=== PATIENT | female | born 1975 | race African-American/Black ===

== ENCOUNTER 2019-09-13 17:11 | Inpatient (IN) | payer MEDICARE, OTHER ==
[~2019-09-13] VITALS: Ht 170.2 cm; Wt 86.6 kg
[~2019-09-13 17:11] MED LIST: ASPIRIN-LOW81 MG ORAL; BENADRYL50 MG PO; CARTIA XT240 MG ORAL; CARVEDILOL25 MG ORAL; CATAPRES0.3 MG ORAL; FULL SPECTRUM0.8 MG PO; LISINOPRIL40 MG ORAL; LORATADINE10 MG PO; RENVELA0.8 GM ORAL
--- NOTE | 2019-09-13 17:20 | NUR ---
ED Nurse Note: Patient walked in to ER from home due to Rt arm numbness x4 days. pt has shunt on Lt upper arm. pt gets dialysis every T, Th, S. last dialysis was yesterday. pt aao x4 and ambulatory. skin clean and intact. calm and cooperative. high bp reported to ERMD upon arrival. pt is in gown and on gutter mouth cutter.
--- NOTE | 2019-09-13 17:30 | NUR ---
ED Nurse Note: pt taken to CT scan in stable condition.
--- NOTE | 2019-09-13 17:34 | Emergency Room Report ---
History of Present Illness General Chief Complaint: General Complaint Source: Patient Present Illness HPI Patient presents with 4 days of intermittent right hand weakness and numbness. Leaning about numbness of her palm. She thought that she might of slept on it wrong initially. She was not doing anything unusual. She had dialysis the day before this started. There is been no problem with dialysis. Patient denies headache. Patient denies fevers and chills. Patient has hypertension but diabetes has been controlled with worsening renal function. Patient's last dialysis was . Allergies: Coded Allergies: No Known Allergies (Verified Allergy, Mild, 09/21/10) Patient History Past Medical History: see triage record Past Surgical History: other - Fistula left upper arm Social History: Denies: smoking, alcohol use, drug use Social History Narrative From home Last Menstrual Period: na Now: No Reviewed Nursing Documentation: PMH: Agreed; PSxH: Agreed Nursing Documentation-PMH Hx Hypertension: Yes Hx Diabetes: Yes Hx Cancer: No Hx Gastrointestinal Problems: No Hx Dialysis: Yes - ESRD with HD //- fistula to left upper arm Hx Neurological Problems: No Physical Exam Vital Signs Date Time Temp Pulse Resp B/P (MAP) Pulse Ox O2 Delivery O2 Flow Rate FiO2 09/13/19 17:16 98.2 78 15 174/77 (109) 97 Room Air Sp02 EP Interpretation: reviewed, normal General Appearance: well appearing, no apparent distress, GCS 15 Head: normocephalic Eyes: bilateral eye normal inspection, bilateral eye PERRL, bilateral eye EOMI ENT: normal pharynx, moist mucus membranes Neck: supple Respiratory: lungs clear, normal breath sounds Cardiovascular #1: regular rate, rhythm - Trace, JVD, other - Subjective difference in capillary fill between left and right hand., edema Cardiovascular #2: 2+ radial (R), 2+ radial (L) - Fistula with thrill Gastrointestinal: normal inspection, normal bowel sounds, non tender, no mass, non-distended Genitourinary: no CVA tenderness Musculoskeletal: back normal, normal range of motion Neurologic: alert, motor strength/tone normal, manager apple III-XII nml as tested, oriented x3, cerebellar normal, speech normal, other - Subjective decreased sensation right palm Skin: no rash, warm/dry Medical Decision Making Diagnostic Impression: Primary Impression: Numbness of right hand Additional Impressions: End stage renal disease on dialysis Cardiomegaly ER Course Patient presents with intermittent right hand weakness and numbness for 4 days with a history of end-stage renal disease on dialysis. Differential includes CVA, TIA, circulatory dysfunction, carpal tunnel amongst others. Evaluation with EKG, chest x-ray, CT of the head and labs. Currently she has subjective numbness of the hand without any other neurologic findings. In addition this is 4 days of symptoms and therefore she is outside of the window for TPA. EKG without injury. No electrical alternans CXR cardiomegally. Labs with chronic renal failure. CT no bleed. Aspirin given for possible TIA. Still numbness. Patient states she is never been told that she has enlarged heart on x-ray. Consider echocardiogram to rule out pericardial effusion. Admit obs telemetry. Consider neuro w/u and consult along with echocardiogram and possible MRI. Laboratory Tests Test 09/13/19 17:35 White Blood Count 6.1 K/UL (4.8-10.8) Red Blood Count 4.41 M/UL (4.20-5.40) Hemoglobin 13.0 G/DL (12.0-16.0) Hematocrit 42.4 % (37.0-47.0) Mean Corpuscular Volume 96 FL (80-99) Mean Corpuscular Hemoglobin 29.6 PG (27.0-31.0) Mean Corpuscular Hemoglobin Concent 30.7 G/DL (32.0-36.0) L Red Cell Distribution Width 16.1 % (11.6-14.8) H Platelet Count 103 K/UL (150-450) L Mean Platelet Volume 10.8 FL (6.5-10.1) H Neutrophils (%) (Auto) 61.3 % (45.0-75.0) Lymphocytes (%) (Auto) 18.2 % (20.0-45.0) L Monocytes (%) (Auto) 6.3 % (1.0-10.0) Eosinophils (%) (Auto) 12.5 % (0.0-3.0) H Basophils (%) (Auto) 1.7 % (0.0-2.0) Prothrombin Time 11.5 SEC (9.30-11.50) Prothrombin Time INR 1.1 (0.9-1.1) Activated Partial Thromboplast Time 29 SEC (23-33) Sodium Level 144 MMOL/L (136-145) Potassium Level 4.3 MMOL/L (3.5-5.1) Chloride Level 102 MMOL/L (98-107) Carbon Dioxide Level 31 MMOL/L (21-32) Anion Gap 11 mmol/L (5-15) Blood Urea Nitrogen 41 mg/dL (7-18) H Creatinine 7.3 MG/DL (0.55-1.30) H Estimate Glomerular Filtration Rate 7.4 mL/min (>60) Glucose Level 137 MG/DL (74-106) H Calcium Level 9.6 MG/DL (8.5-10.1) Total Bilirubin 0.5 MG/DL (0.2-1.0) Aspartate Amino Transferase (AST) 28 U/L (15-37) Alanine Aminotransferase (ALT) 43 U/L (12-78) Alkaline Phosphatase 117 U/L (46-116) H Total Creatine Kinase 130 U/L (26-308) Troponin I 0.049 ng/mL (0.000-0.056) Pro-B-Type Natriuretic Peptide 86997 pg/mL (0-125) H Total Protein 8.4 G/DL (6.4-8.2) H Albumin 4.1 G/DL (3.4-5.0) Globulin 4.3 g/dL Albumin/Globulin Ratio 1.0 (1.0-2.7) EKG Diagnostic Results Rate: normal Rhythm: NSR ST Segments: no acute changes - Right bundle branch block right ventricular hypertrophy left posterior fascicular block Rhythm Strip Diag. Results EP Interpretation: yes Rhythm: NSR, no PVC's, no ectopy Chest X-Ray Diagnostic Results Chest X-Ray Diagnostic Results : Chest X-Ray Ordered: Yes # of Views/Limited/Complete: 1 View Indication: Other EP Interpretation: Yes Interpretation: no consolidation, no effusion, no pneumothorax, other - Cardiomegaly Impression: Other Electronically Signed by: Electronically signed by Colin Lopez MD CT/MRI/US Diagnostic Results CT/MRI/US Diagnostic Results : Imaging Test Ordered: head Impression no bleed or mass effect Last Vital Signs Date Time Temp Pulse Resp B/P (MAP) Pulse Ox O2 Delivery O2 Flow Rate FiO2 09/14/19 00:00 76 3/7/20 00:00 97.6 17 158/68 (98) 98 09/13/19 20:57 Room Air Status: improved Disposition: PLACE IN OBSERVATION Condition: Serious Colin Lopez MD Sep 13, 2019 17:34
[2019-09-13 17:40] VITALS: BP 185/72
--- NOTE | 2019-09-13 17:45 | NUR ---
ED Nurse Note: Patient came back from CT scan in stable condition.
[2019-09-13 17:46] LABS: BASOPHILS % (AUTO) 1.7 % (0.0-2.0); EOSINOPHILS % (AUTO) 12.5 % (0.0-3.0); HEMATOCRIT 42.4 % (37.0-47.0); LYMPHOCYTES % (AUTO) 18.2 % (20.0-45.0); MEAN CORPUSCULAR VOLUME 96 FL (80-99); MONOCYTES % (AUTO) 6.3 % (1.0-10.0); NEUTROPHILS % (AUTO) 61.3 % (45.0-75.0); PLATELET COUNT 103 K/UL (150-450); RED BLOOD COUNT 4.41 M/UL (4.20-5.40); RED CELL DISTRIBUTION WIDTH 16.1 % (11.6-14.8); WHITE BLOOD COUNT 6.1 K/UL (4.8-10.8)
--- NOTE | 2019-09-13 17:48 | Diagnostic Imaging Report ---
EXAM: CT Head Without Intravenous Contrast CLINICAL HISTORY: CVA TECHNIQUE: Axial computed tomography images of the head/brain without intravenous contrast. CTDI is 53 mGy and DLP is 1018 mGy-cm. One or more of the following dose reduction techniques were used: automated exposure control, adjustment of the mA and/or kV according to patient size, use of iterative reconstruction technique. COMPARISON: No relevant prior studies available. FINDINGS: Brain: Unremarkable. No hemorrhage. No significant white matter disease. No edema. Ventricles: Unremarkable. No ventriculomegaly. Bones/joints: Unremarkable. No acute fracture. Soft tissues: Unremarkable. Sinuses: Unremarkable as visualized. No acute sinusitis. Mastoid air cells: Unremarkable as visualized. No mastoid effusion. IMPRESSION: 1. No acute intracranial abnormality. 2. If there is further concern, consider MRI.
--- NOTE | 2019-09-13 17:50 | Diagnostic Imaging Report ---
EXAM: XR Chest, 1 View CLINICAL HISTORY: CVA TECHNIQUE: Frontal view of the chest. COMPARISON: No relevant prior studies available. FINDINGS: Lungs: Unremarkable. No consolidation. Pleural space: Unremarkable. No pneumothorax. Heart: Massive cardiac mediastinal silhouette enlargement, which could represent pericardial effusion, chamber enlargement, or a combination of these processes. Mediastinum: Unremarkable. Bones/joints: Unremarkable. IMPRESSION: 1. Massive cardiac mediastinal silhouette enlargement, which could represent pericardial effusion, chamber enlargement, or a combination of these processes. 2. Otherwise no acute cardiopulmonary disease. 3. Recommend echocardiogram to further characterize cardiomediastinal silhouette findings.
[2019-09-13 17:58] LABS: ANION GAP 11 mmol/L (5-15); BLOOD UREA NITROGEN 41 mg/dL (7-18); CALCIUM 9.6 MG/DL (8.5-10.1); CARBON DIOXIDE 31 MMOL/L (21-32); CHLORIDE 102 MMOL/L (98-107); CREATININE 7.3 MG/DL (0.55-1.30); POTASSIUM 4.3 MMOL/L (3.5-5.1); SODIUM 144 MMOL/L (136-145)
[2019-09-13 18:00] LABS: INR 1.1 (0.9-1.1)
[2019-09-13] MEDS ORDERED: VITAMIN B-1100 MG ORAL (18:11)
[2019-09-13] MEDS ORDERED: CARVEDILOL25 MG ORAL (18:11)
[2019-09-13] MEDS ORDERED: ASPIRIN EC81 MG ORAL (18:11)
[2019-09-13] MEDS ORDERED: MINOXIDIL10 MG PO (18:11)
[2019-09-13] MEDS ORDERED: HYDRALAZINE HCL25 M1 ORAL (18:11)
[2019-09-13] MEDS ORDERED: RENVELA0.8 GM ORAL (18:11)
[2019-09-13 18:12] LABS: ALANINE AMINOTRANSFERASE 43 U/L (12-78); ALBUMIN 4.1 G/DL (3.4-5.0); ALKALINE PHOSPHATASE 117 U/L (46-116); ASPARTATE AMINO TRANSFERASE 28 U/L (15-37); BILIRUBIN,TOTAL 0.5 MG/DL (0.2-1.0); CREATINE KINASE 130 U/L (26-308)
[2019-09-13 19:10] VITALS: BP 180/73
--- NOTE | 2019-09-13 19:10 | NUR ---
ED Nurse Note: Report received from Sylvain Andre RN. Pt in stable condition, VSS no s/s of distress noted. Pt resting in bed.
[2019-09-13 20:08] VITALS: BP 155/65
--- NOTE | 2019-09-13 20:10 | NUR ---
ER DISCHARGE NOTE: Patient is cleared to be discharged TO TELEMETRY UNIT per ERMD, pt is aox4, on room air, with stable vital signs. pt was able to verbalize understanding. pt is able to ambulate with steady gait. pt took all belongings. Pt transferred with environmental tech and 1 RN on bus driver/monitor. Report given to ALEXUS Everett on telemetry unit.
--- NOTE | 2019-09-13 20:12 | NUR ---
ED Nurse Note: report given to ALEXUS Everett on telemetry unit
--- NOTE | 2019-09-13 20:20 | NUR ---
NURSE NOTES: Received pt via gurney from ED. Pt transferred to 221-2 without any incident. Pt is A/Ox4. [place] pt to room and unit. nurse monitoring is in placed; pt is NSR. IV site intact, asymptomatic, and patent. Bed is in the lowest position and locked. Call light and bedside table is within reach. Belongings list check and signed. No signs/symptoms of acute distress noted at this time. Will contact Dr. Moreno for admission orders.
[2019-09-13 20:30] VITALS: BP 160/74
--- NOTE | 2019-09-13 20:40 | NUR ---
NURSE NOTES: Contacted Dr. Moreno for admission orders. Awaiting call back.
--- NOTE | 2019-09-13 21:45 | NUR ---
NURSE NOTES: Received admission orders from Dr. Moreno. Will note and carry out.
[2019-09-13] MEDS ORDERED: Renvela 800mg Pkt ORAL PRN (22:15)
[2019-09-13] MEDS: HydrALAZINE 25mg tab ORAL SCH (22:35)
[2019-09-13] MEDS: Minoxidil 10mg tab ORAL SCH (22:35)
[2019-09-14] VITALS: BP 158/68
--- NOTE | 2019-09-14 02:32 | NUR ---
NURSE NOTES: Observed pt asleep in bed. No signs/symptoms of acute distress noted at this time. Will continue plan of care.
[2019-09-14 04:00] VITALS: BP 161/74
[2019-09-14 06:45] LABS: BASOPHILS % (AUTO) 1.7 % (0.0-2.0); HEMATOCRIT 36.4 % (37.0-47.0); LYMPHOCYTES % (AUTO) 23.9 % (20.0-45.0); MEAN CORPUSCULAR VOLUME 93 FL (80-99); MONOCYTES % (AUTO) 8.3 % (1.0-10.0); NEUTROPHILS % (AUTO) 51.2 % (45.0-75.0); PLATELET COUNT 107 K/UL (150-450); RED BLOOD COUNT 3.93 M/UL (4.20-5.40); RED CELL DISTRIBUTION WIDTH 14.4 % (11.6-14.8); WHITE BLOOD COUNT 5.8 K/UL (4.8-10.8)
[2019-09-14 07:05] LABS: ALANINE AMINOTRANSFERASE 29 U/L (12-78); ALBUMIN 3.7 G/DL (3.4-5.0); ALBUMIN/GLOBULIN RATIO 0.9 (1.0-2.7); ALKALINE PHOSPHATASE 108 U/L (46-116); ANION GAP 12 mmol/L (5-15); ASPARTATE AMINO TRANSFERASE 22 U/L (15-37); BILIRUBIN,TOTAL 0.5 MG/DL (0.2-1.0); BLOOD UREA NITROGEN 52 mg/dL (7-18); CALCIUM 9.6 MG/DL (8.5-10.1); CARBON DIOXIDE 27 MMOL/L (21-32); CHLORIDE 104 MMOL/L (98-107); CHOLESTEROL 119 MG/DL (< 200); CREATININE 7.5 MG/DL (0.55-1.30); HDL CHOLESTEROL 62 MG/DL (40-60); POTASSIUM 4.4 MMOL/L (3.5-5.1); SODIUM 143 MMOL/L (136-145); TRIGLYCERIDES 35 MG/DL (30-150)
--- NOTE | 2019-09-14 07:30 | NUR ---
HAND-OFF: Report given to ALEXUS Harris. Plan of care endorsed.
--- NOTE | 2019-09-14 07:31 | NUR ---
NURSE NOTES: Received report from Marguerite/RN, Patient is awake and alert x4. On room air, on renal diet-instructed. No acute distress/SOB noted. Breathing unlabored and even. Able to make needs known, Denies pain at this time. IV on Right hand G-20, saline lock patent, with left upper arm AV shunt, no bleeding or infiltration noted. Bed in low position and locked, bed alarm engaged, Side rails up x2. call light within reach, Encouraged to use call light when needed. Will continue plan of care.
[2019-09-14 08:00] VITALS: BP 170/79
[2019-09-14] MEDS: Aspirin EC 81mg tab ORAL SCH (08:22)
[2019-09-14] MEDS: Thiamine 100mg tab ORAL SCH (08:22)
[2019-09-14] MEDS: HydrALAZINE 25mg tab ORAL SCH ×3 (08:22→22:00)
[2019-09-14] MEDS: Minoxidil 10mg tab ORAL SCH (08:25)
--- NOTE | 2019-09-14 08:26 | NUR ---
NURSE NOTES: Patient refused to take Minoxidil 10mg, Patient stated, she takes it only at night.
[2019-09-14] MEDS ORDERED: Carvedilol 25mg Tab ORAL SCH (09:00)
[2019-09-14] MEDS ORDERED: Minoxidil 10mg tab ORAL SCH (09:00)
--- NOTE | 2019-09-14 09:55 | Diagnostic Imaging Report ---
EXAM: US Duplex Bilateral Extracranial Arteries CLINICAL HISTORY: CVA TECHNIQUE: Real-time duplex ultrasound scan of the extracranial arteries integrating B-mode two-dimensional vascular structure, Doppler spectral analysis and color flow Doppler imaging. COMPARISON: No relevant prior studies available. FINDINGS: Right common carotid artery: Unremarkable. No occlusion or significant stenosis on color flow and spectral Doppler imaging. Right internal carotid artery: Mild plaque. Peak systolic velocity equals 108 cm/s consistent less than 50% stenosis. Right external carotid artery: Unremarkable. No occlusion or significant stenosis on color flow and spectral Doppler imaging. Right vertebral artery: Unremarkable. Antegrade flow. Right ICA/CCA ratio: 1.9 Left common carotid artery: Unremarkable. No occlusion or significant stenosis on color flow and spectral Doppler imaging. Left internal carotid artery: Moderate calcified of this carotid plaque producing elevation of the peak systolic velocity to 2 21 cm/s with ICA to CCA ratio measuring 1.9 consistent with 50-69% stenosis Left external carotid artery: Unremarkable. No occlusion or significant stenosis on color flow and spectral Doppler imaging. Left vertebral artery: Unremarkable. Antegrade flow. Left ICA/CCA ratio: 1.9. Lymph nodes: Unremarkable. No lymphadenopathy. CAROTID STENOSIS REFERENCE USING SRU CRITERIA: Mild - <50% stenosis. ICA PSV is less than 125 cm/second and plaque or intimal thickening is visible. Moderate - 50-69% stenosis. ICA PSV is 125 to 230 cm/second and plaque is visible. Severe - 70-94% stenosis. ICA PSV is more than 230 cm/second and visible plaque with lumen narrowing is seen. Near occlusion - 95-99% stenosis. ICA PSV is variable and significant plaque with luminal narrowing is seen. Occluded - 100% stenosis. No flow identified. IMPRESSION: Moderate atherosclerotic plaque in the left proximal internal carotid artery producing 50-69% stenosis. Less than 50% stenosis of the right proximal internal carotid artery.
[2019-09-14 12:00] VITALS: BP 130/60
--- NOTE | 2019-09-14 12:13 | History & Physical ---
History and Physical History & Physicial seen and examined. Dictation completed on 1210 hrs Juan Moreno MD Sep 14, 2019 12:13
--- NOTE | 2019-09-14 12:14 | General Progress Note ---
Assessment/Plan Assessment/Plan: S, O: I am doing ok, denies sever sob, or chest pain . PHYSICAL EXAMINATION:HEAD AND NECK: Atraumatic and normocephalic. CHEST: Clear to auscultation.HEART: S1, S2. Regular rate and rhythm. ABDOMEN: Soft. No organomegaly. MUSCULOSKELETAL: Positive for the AV graft/ shunt on the left upper extremity.NEUROLOGIC: Awake, alert, and oriented x3. No gross sensory or motor deficit in the affected limb is appreciated. LABORATORY DATA: Labs dated September 13 reveiwed ASSESSMENT: 1. Acute sensory deficit in the right upper extremity with differential diagnosis of the TIA/CVA. 2. End-stage renal disease, on hemodialysis. 3. Abnormal blood glucose. 4. Abnormal BNP. 5. Thrombocytopenia. 6. Hypertension. 7. GI and DVT prophylaxis. Plan: Cardiology and Nephrology notes are reviwed Subjective Allergies: Coded Allergies: No Known Allergies (Verified Allergy, Mild, 09/21/10) Objective Last 24 Hour Vital Signs Date Time Temp Pulse Resp B/P (MAP) Pulse Ox O2 Delivery O2 Flow Rate FiO2 09/14/19 09:00 Room Air 09/14/19 08:25 170/79 09/14/19 08:22 170/79 09/14/19 08:22 75 170/79 09/14/19 08:00 97.2 75 17 170/79 (109) 98 09/14/19 08:00 75 09/14/19 04:00 69 09/14/19 04:00 97.7 74 17 161/74 (103) 99 09/14/19 00:00 76 09/14/19 00:00 97.6 78 17 158/68 (98) 98 09/13/19 22:35 160/74 09/13/19 22:35 160/74 09/13/19 20:57 Room Air 09/13/19 20:30 97.9 75 18 160/74 (102) 100 09/13/19 20:30 80 09/13/19 20:10 98.2 75 14 155/65 99 Room Air 76 09/13/19 20:08 98.2 76 14 155/65 99 Room Air 09/13/19 19:10 98.2 75 16 180/73 99 Room Air 09/13/19 17:40 98.2 79 19 185/72 99 Room Air 09/13/19 17:40 78 15 Room Air 09/13/19 17:16 98.2 78 15 174/77 (109) 97 Room Air Intake and Output 09/13/19 09/14/19 19:00 07:00 Intake Total 0 ml 420 ml Balance 0 ml 420 ml Intake Oral 0 ml 420 ml Laboratory Tests 09/13/19 17:35: White Blood Count 6.1, Red Blood Count 4.41, Hemoglobin 13.0, Hematocrit 42.4, Mean Corpuscular Volume 96, Mean Corpuscular Hemoglobin 29.6, Mean Corpuscular Hemoglobin Concent 30.7L, Red Cell Distribution Width 16.1H, Platelet Count 103L , Mean Platelet Volume 10.8H, Neutrophils (%) (Auto) 61.3, Lymphocytes (%) (Auto ) 18.2L, Monocytes (%) (Auto) 6.3, Eosinophils (%) (Auto) 12.5H, Basophils (%) ( Auto) 1.7, Prothrombin Time 11.5, Prothromb Time International Ratio 1.1, Activated Partial Thromboplast Time 29, Sodium Level 144, Potassium Level 4.3, Chloride Level 102, Carbon Dioxide Level 31, Anion Gap 11, Blood Urea Nitrogen 41H, Creatinine 7.3H, Estimat Glomerular Filtration Rate 7.4, Glucose Level 137H , Calcium Level 9.6, Total Bilirubin 0.5, Aspartate Amino Transf (AST/SGOT) 28, Alanine Aminotransferase (ALT/SGPT) 43, Alkaline Phosphatase 117H, Total Creatine Kinase 130, Troponin I 0.049, Pro-B-Type Natriuretic Peptide 27819Q, Total Protein 8.4H, Albumin 4.1, Globulin 4.3, Albumin/Globulin Ratio 1.0 09/14/19 05:00: White Blood Count 5.8, Red Blood Count 3.93L, Hemoglobin 12.0, Hematocrit 36.4L , Mean Corpuscular Volume 93, Mean Corpuscular Hemoglobin 30.5, Mean Corpuscular Hemoglobin Concent 32.9, Red Cell Distribution Width 14.4, Platelet Count 107L, Mean Platelet Volume 9.7, Neutrophils (%) (Auto) 51.2, Lymphocytes ( %) (Auto) 23.9, Monocytes (%) (Auto) 8.3, Eosinophils (%) (Auto) 15.0H, Basophils (%) (Auto) 1.7, Sodium Level 143, Potassium Level 4.4, Chloride Level 104, Carbon Dioxide Level 27, Anion Gap 12, Blood Urea Nitrogen 52H, Creatinine 7.5H, Estimat Glomerular Filtration Rate 7.2, Glucose Level 81, Calcium Level 9.6, Total Bilirubin 0.5, Aspartate Amino Transf (AST/SGOT) 22, Alanine Aminotransferase (ALT/SGPT) 29, Alkaline Phosphatase 108, Troponin I 0.045, Total Protein 7.7, Albumin 3.7, Globulin 4.0, Albumin/Globulin Ratio 0.9L, Hemoglobin A1c 5.3, Phosphorus Level [Pending], Triglycerides Level 35, Cholesterol Level 119, LDL Cholesterol 59, HDL Cholesterol 62H, Cholesterol/HDL Ratio 1.9L, Thyroid Stimulating Hormone (TSH) [Pending] 09/14/19 10:00: Troponin I 0.048 Height (Feet): 5 Height (Inches): 7.00 Weight (Pounds): 190 Juan Moreno MD Sep 14, 2019 12:14
--- NOTE | 2019-09-14 12:48 | NUR ---
NURSE NOTES: Dr. Kerr ordered Hemodialysis today, Called [facility], spoke to DESMOND and gave patients information. Informed patient about the schedule, Will follow-up today.
[2019-09-14 12:51] LABS: PHOSPHORUS 4.8 MG/DL (2.5-4.9)
--- NOTE | 2019-09-14 13:16 | Cardiac Electrophysiology PN ---
Subjective Subjective [id number] Objective Last 24 Hour Vital Signs Date Time Temp Pulse Resp B/P (MAP) Pulse Ox O2 Delivery O2 Flow Rate FiO2 09/14/19 12:00 67 09/14/19 12:00 97.5 68 18 130/60 (83) 99 09/14/19 09:00 Room Air 09/14/19 08:25 170/79 09/14/19 08:22 170/79 09/14/19 08:22 75 170/79 09/14/19 08:00 97.2 75 17 170/79 (109) 98 09/14/19 08:00 75 09/14/19 04:00 69 09/14/19 04:00 97.7 74 17 161/74 (103) 99 09/14/19 00:00 76 09/14/19 00:00 97.6 78 17 158/68 (98) 98 09/13/19 22:35 160/74 09/13/19 22:35 160/74 09/13/19 20:57 Room Air 09/13/19 20:30 97.9 75 18 160/74 (102) 100 09/13/19 20:30 80 09/13/19 20:10 98.2 75 14 155/65 99 Room Air 76 09/13/19 20:08 98.2 76 14 155/65 99 Room Air 09/13/19 19:10 98.2 75 16 180/73 99 Room Air 09/13/19 17:40 98.2 79 19 185/72 99 Room Air 09/13/19 17:40 78 15 Room Air 09/13/19 17:16 98.2 78 15 174/77 (109) 97 Room Air Intake and Output 09/13/19 09/14/19 19:00 07:00 Intake Total 0 ml 420 ml Balance 0 ml 420 ml Intake Oral 0 ml 420 ml Laboratory Tests Test 09/13/19 17:35 09/14/19 05:00 09/14/19 10:00 White Blood Count 6.1 K/UL (4.8-10.8) 5.8 K/UL (4.8-10.8) Red Blood Count 4.41 M/UL (4.20-5.40) 3.93 M/UL (4.20-5.40) L Hemoglobin 13.0 G/DL (12.0-16.0) 12.0 G/DL (12.0-16.0) Hematocrit 42.4 % (37.0-47.0) 36.4 % (37.0-47.0) L Mean Corpuscular Volume 96 FL (80-99) 93 FL (80-99) Mean Corpuscular Hemoglobin 29.6 PG (27.0-31.0) 30.5 PG (27.0-31.0) Mean Corpuscular Hemoglobin Concent 30.7 G/DL (32.0-36.0) L 32.9 G/DL (32.0-36.0) Red Cell Distribution Width 16.1 % (11.6-14.8) H 14.4 % (11.6-14.8) Platelet Count 103 K/UL (150-450) L 107 K/UL (150-450) L Mean Platelet Volume 10.8 FL (6.5-10.1) H 9.7 FL (6.5-10.1) Neutrophils (%) (Auto) 61.3 % (45.0-75.0) 51.2 % (45.0-75.0) Lymphocytes (%) (Auto) 18.2 % (20.0-45.0) L 23.9 % (20.0-45.0) Monocytes (%) (Auto) 6.3 % (1.0-10.0) 8.3 % (1.0-10.0) Eosinophils (%) (Auto) 12.5 % (0.0-3.0) H 15.0 % (0.0-3.0) H Basophils (%) (Auto) 1.7 % (0.0-2.0) 1.7 % (0.0-2.0) Prothrombin Time 11.5 SEC (9.30-11.50) Prothromb Time International Ratio 1.1 (0.9-1.1) Activated Partial Thromboplast Time 29 SEC (23-33) Sodium Level 144 MMOL/L (136-145) 143 MMOL/L (136-145) Potassium Level 4.3 MMOL/L (3.5-5.1) 4.4 MMOL/L (3.5-5.1) Chloride Level 102 MMOL/L (98-107) 104 MMOL/L (98-107) Carbon Dioxide Level 31 MMOL/L (21-32) 27 MMOL/L (21-32) Anion Gap 11 mmol/L (5-15) 12 mmol/L (5-15) Blood Urea Nitrogen 41 mg/dL (7-18) H 52 mg/dL (7-18) H Creatinine 7.3 MG/DL (0.55-1.30) H 7.5 MG/DL (0.55-1.30) H Estimat Glomerular Filtration Rate 7.4 mL/min (>60) 7.2 mL/min (>60) Glucose Level 137 MG/DL (74-106) H 81 MG/DL (74-106) Calcium Level 9.6 MG/DL (8.5-10.1) 9.6 MG/DL (8.5-10.1) Total Bilirubin 0.5 MG/DL (0.2-1.0) 0.5 MG/DL (0.2-1.0) Aspartate Amino Transf (AST/SGOT) 28 U/L (15-37) 22 U/L (15-37) Alanine Aminotransferase (ALT/SGPT) 43 U/L (12-78) 29 U/L (12-78) Alkaline Phosphatase 117 U/L (46-116) H 108 U/L (46-116) Total Creatine Kinase 130 U/L (26-308) Troponin I 0.049 ng/mL (0.000-0.056) 0.045 ng/mL (0.000-0.056) 0.048 ng/mL (0.000-0.056) Pro-B-Type Natriuretic Peptide 92747 pg/mL (0-125) H Total Protein 8.4 G/DL (6.4-8.2) H 7.7 G/DL (6.4-8.2) Albumin 4.1 G/DL (3.4-5.0) 3.7 G/DL (3.4-5.0) Globulin 4.3 g/dL 4.0 g/dL Albumin/Globulin Ratio 1.0 (1.0-2.7) 0.9 (1.0-2.7) L Hemoglobin A1c 5.3 % (4.3-6.0) Phosphorus Level 4.8 MG/DL (2.5-4.9) Triglycerides Level 35 MG/DL (30-150) Cholesterol Level 119 MG/DL (< 200) LDL Cholesterol 59 mg/dL (<100) HDL Cholesterol 62 MG/DL (40-60) H Cholesterol/HDL Ratio 1.9 (3.3-4.4) L Thyroid Stimulating Hormone (TSH) 1.965 uiU/mL (0.358-3.740) Milton Rosen MD Sep 14, 2019 13:16
--- NOTE | 2019-09-14 15:30 | NUR ---
NURSE NOTES: Patient resting well on bed, no distress nor complaints of pain at this time.
[2019-09-14 16:00] VITALS: BP 132/67
--- NOTE | 2019-09-14 16:21 | Consultation ---
Consult Note Consult Note I was asked to evaluate the patient at the request of Dr. Moreno for dialysis management Patient was admitted through emergency room last night Presented with 4 days of intermittent right hand weakness and numbness. Her past history significant for hypertension diabetes and also end-stage renal disease. She states that she has been on hemodialysis for the past 7 years Patient receives dialysis Monday and she has a functioning left arm fistula for dialysis access Patient was interviewed Patient examined Chart reviewed Cussed with Dr. Moreno . Assessment/Plan End-stage renal disease on dialysis Numbness of the right hand unclear whether its vascular or neurological Hypertension and cardiomegaly CXR: 1. Massive cardiac mediastinal silhouette enlargement, which could represent pericardial effusion, chamber enlargement, or a combination of these processes. 2. Otherwise no acute cardiopulmonary disease. 3. Recommend echocardiogram to further characterize cardiomediastinal silhouette findings. Brain CT 1. No acute intracranial abnormality. Plan For dialysis today was ordered Keep the blood pressure in check 2D echocardiogram Continue per consultants Paul Kilgore MD Sep 14, 2019 16:21
[2019-09-14] MEDS: Carvedilol 25mg Tab ORAL SCH (17:42)
[2019-09-14] MEDS: Docusate 100mg cap ORAL SCH (18:00)
--- NOTE | 2019-09-14 18:15 | History and Physical Report ---
DATE OF ADMISSION: 09/13/2019 SOURCE OF INFORMATION: The patient and EMR. HISTORY OF PRESENT ILLNESS: The patient is a pleasant 44-year-old female with history of end-stage renal disease. At the time of evaluation, the patient denies any chest pain or shortness of breath. Positive for the numbness and sensation issues on the right upper extremity radiation from the neck. The patient denies any slurred speech. Denies any lapse in her conscious. At the time of evaluation, denies any shortness of breath or chest pain. No nausea. No vomitus. No diarrhea. PAST MEDICAL HISTORY: Including but not limited to hypertension and end-stage renal disease. PAST SURGICAL HISTORY: Including but not limited to the left upper extremity AV graft. ALLERGIES: NKDA. FAMILY HISTORY: Reviewed and noncontributory. SOCIAL HISTORY: Denies history of illicit drug abuse, smoking, or alcohol abuse. REVIEW OF SYSTEMS: All 12 elements of review of systems reviewed. Pertinent positives and negatives as above. PHYSICAL EXAMINATION: VITAL SIGNS: Blood pressure 170/80, temperature 98.2, pulse rate 75, pulse-ox 100% on room air, and respiratory rate 18. HEAD AND NECK: Atraumatic and normocephalic. CHEST: Clear to auscultation. HEART: S1, S2. Regular rate and rhythm. ABDOMEN: Soft. No organomegaly. MUSCULOSKELETAL: Positive for the AV graft/shunt on the left upper extremity. NEUROLOGIC: Awake, alert, and oriented x3. No gross sensory or motor deficit in the affected limb is appreciated. LABORATORY DATA: Labs dated September 12, shows platelet of 103,000. Sodium 144, potassium 4.3, BUN 41, and creatinine 7.3. Troponin x3, negative. LDL 59. Glucose 137. IMAGING: CT scan of head dated September 12, reviewed and is unremarkable. Chest x-ray dated September 12, shows massive cardiac silhouette, possibility of effusion cannot be excluded. ASSESSMENT: 1. Acute sensory deficit in the right upper extremity with differential diagnosis of the TIA/CVA. 2. End-stage renal disease, on hemodialysis. 3. Abnormal blood glucose. 4. Abnormal BNP. 5. Thrombocytopenia. 6. Hypertension. 7. GI and DVT prophylaxis. PLAN OF CARE: Cardiology and Nephrology consulted. I will proceed with the MRI of the brain. I would extend the assessment by ordering the cervical x-ray for possibility of the neurologic compromise at the cervical level. Juan Moreno M.D. DR: ERIC JOB#: [id number] CC:
--- NOTE | 2019-09-14 18:30 | Consultation ---
DATE OF CONSULTATION: 09/14/2019 CARDIOLOGY CONSULTATION CONSULTING PHYSICIAN: Milton Rosen M.D. REFERRING PHYSICIAN: Juan Moreno M.D. REASON FOR CONSULTATION: Management of hypertension and weakness. HISTORY OF PRESENT ILLNESS: The patient is a 44-year-old lady with history of hypertension, end-stage renal disease, on hemodialysis, last dialysis being on , presented to the emergency room for intermittent right hand weakness and numbness. The patient felt that she might have slept on it wrong initially. The patient came to the emergency room and was admitted and a Cardiology consultation was requested for further evaluation and management. The patient denies any prior myocardial infarction or coronary artery disease or congestive heart failure. REVIEW OF SYSTEMS: Review of systems was negative other than what is mentioned in the history of present illness. PAST MEDICAL HISTORY: As mentioned above. FAMILY HISTORY: Noncontributory. SOCIAL HISTORY: She lives at home. Does not smoke or drink alcohol. PHYSICAL EXAMINATION: VITAL SIGNS: Show blood pressure of 170/79, pulse is 67, respirations 18, and she is afebrile. HEAD AND NECK: Shows no jugular venous distention. LUNGS: Clear. CARDIOVASCULAR: Shows regular S1 and S2 with no gallop or murmur. ABDOMEN: Soft. EXTREMITIES: No pitting edema. Left arm has an AV shunt. LABORATORY AND DIAGNOSTIC DATA: Labs show white count of 5.8, hemoglobin 12, hematocrit 36.4, and platelet count is 107,000. Sodium 142, potassium 4.0, BUN of 52, creatinine 7.5, and glucose of 81. Troponin negative x3. ASSESSMENT AND PLAN: 1. Right arm pain. The patient's EKG showed sinus rhythm with complete right bundle-branch block and left posterior fascicular block. She already ruled out for myocardial infarction. Her preliminary echocardiogram showed hyperdynamic left ventricle. 2. Hypertension and left ventricular hypertrophy. Continue and increase the Coreg to 25 mg b.i.d. The patient is also on minoxidil daily as well as hydralazine 25 mg b.i.d. and hemodialysis. 3. End-stage renal disease, on hemodialysis. 4. Bifascicular block with right bundle-branch block and left anterior fascicular block. Thank you much for allowing me to participate in the care of this patient. Please do not hesitate to contact me for any questions regarding my evaluation. Milton Rosen M.D. DR: SARAH JOB#: [id number] CC:
--- NOTE | 2019-09-14 19:28 | NUR ---
HAND-OFF: Report given to ALEXUS Goldsmith. Patient sitting confortably on bed, no complaints at this time, plan of care endorsed..
--- NOTE | 2019-09-14 19:45 | NUR ---
NURSE NOTES: Report received from ALEXUS Harris. Pt is observed resting in bed. Pt noted to be alert and oriented x3-4. Pt is able to follow commands and make needs known. Pt assessed for pain; and denies pain at this time. Pt noted to be SR on surveillance monitor with a current HR of 72 and no s/sx of cardiac distress noted. Pt is currently on RA with no s/sx of acute distress noted. Right AC 20g IV catheter noted which remain asymptomatic, patent and intact. L upper arm AV Fistula noted, bruit and thrill present. Skin remains intact. Diagnostics reviewed and pt agrees to safety contract, will use call light despite being ambulatory. Pt remains resting in bed; bed remains in the lowest position with safety wheels engaged, side rails up x3, call light within reach and bed alarm activated. Will continue plan of care. Will continue to monitor.
--- NOTE | 2019-09-14 19:45 | NUR ---
NURSE NOTES: Pt provided with materials for bed bath, oral care and linen change. Pt performed care with minimal assistance and requested a snack. Snack provided compliant with diet order. Pt remains resting in bed; bed remains in the lowest position with safety wheels engaged, side rails up x3, call light within reach and bed alarm activated. Will continue plan of care. Will continue to monitor.
[2019-09-14 20:00] VITALS: BP 121/72
--- NOTE | 2019-09-14 20:42 | NUR ---
NURSE NOTES: HD started. Pt remains resting comfortably in bed with no complaints of pain. Dialysis nurse present at bedside. Will continue to monitor.
[2019-09-14] MEDS: Heparin 5000 units/ml inj SUBQ SCH (20:52)
--- NOTE | 2019-09-14 20:53 | NUR ---
NURSE NOTES: Heparin and Apresoline held due to HD. Will continue to monitor patient. Will reassess Bp after dialysis.
[2019-09-14] MEDS: Acetaminophen 500mg (ES) tab ORAL PRN (23:39)
[2019-09-15] VITALS: BP 116/76
[2019-09-15 04:00] VITALS: BP 119/70
[2019-09-15] MEDS: HydrALAZINE 25mg tab ORAL SCH ×2 (05:54→13:25)
[2019-09-15 07:14] LABS: HEMATOCRIT 35.1 % (37.0-47.0); HEMOGLOBIN 11.6 G/DL (12.0-16.0); MEAN CORPUSCULAR VOLUME 93 FL (80-99); PLATELET COUNT 91 K/UL (150-450); RED CELL DISTRIBUTION WIDTH 14.1 % (11.6-14.8); WHITE BLOOD COUNT 5.1 K/UL (4.8-10.8)
--- NOTE | 2019-09-15 07:14 | NUR ---
HAND-OFF: Report given to ALEXUS Pizarro. Pt remains stable at this time.
[2019-09-15 07:43] LABS: ALANINE AMINOTRANSFERASE 22 U/L (12-78); ALBUMIN 3.4 G/DL (3.4-5.0); ALBUMIN/GLOBULIN RATIO 0.9 (1.0-2.7); ALKALINE PHOSPHATASE 99 U/L (46-116); ANION GAP 9 mmol/L (5-15); ASPARTATE AMINO TRANSFERASE 19 U/L (15-37); BILIRUBIN,TOTAL 0.4 MG/DL (0.2-1.0); BLOOD UREA NITROGEN 41 mg/dL (7-18); CARBON DIOXIDE 30 MMOL/L (21-32); CHLORIDE 101 MMOL/L (98-107); CREATININE 6.9 MG/DL (0.55-1.30); GAMMA GLUTAMYL TRANSPEPTIDASE 83 U/L (5-85); POTASSIUM 4.4 MMOL/L (3.5-5.1); SODIUM 140 MMOL/L (136-145)
[2019-09-15 08:00] VITALS: BP_SYST 119; BP_SYST 147; BP_DIAS 71; BP_DIAS 79
--- NOTE | 2019-09-15 08:20 | NUR ---
NURSE NOTES: Received report from ALEXUS Goldsmith. Observed pt sleeping in bed, no SOB observed, no s/sx of acute distress. Bed on lowest position, call light within reach. Will continue to monitor.
[2019-09-15] MEDS: Docusate 100mg cap ORAL SCH ×3 (08:52→17:44)
[2019-09-15] MEDS: Minoxidil 10mg tab ORAL SCH (08:54)
[2019-09-15] MEDS: Carvedilol 25mg Tab ORAL SCH ×2 (08:54→17:44)
[2019-09-15] MEDS: Thiamine 100mg tab ORAL SCH (08:54)
[2019-09-15] MEDS: Heparin 5000 units/ml inj SUBQ SCH ×2 (08:57→21:00)
[2019-09-15] MEDS: Aspirin EC 81mg tab ORAL SCH (08:57)
[2019-09-15 12:00] VITALS: BP 162/76
[2019-09-15] MEDS ORDERED: HydrALAZINE 25mg tab ORAL SCH (14:00)
[2019-09-15] MEDS ORDERED: HydrALAZINE 50mg tab ORAL SCH ×3 (14:00→22:00)
--- NOTE | 2019-09-15 15:38 | Nephrology Progress Note ---
Assessment/Plan Problem List: (1) End stage renal disease on dialysis (2) Cardiomegaly (3) Numbness of right hand Assessment End-stage renal disease on dialysis Numbness of the right hand unclear whether its vascular or neurological Hypertension and cardiomegaly Plan dialysis done September 13 next dialysis September 16 Keep the blood pressure in check and adjusted blood pressure medication 2D echocardiogram indicative of ejection fraction of 60% Continue per consultants CXR: 1. Massive cardiac mediastinal silhouette enlargement, which could represent pericardial effusion, chamber enlargement, or a combination of these processes. 2. Otherwise no acute cardiopulmonary disease. 3. Recommend echocardiogram to further characterize cardiomediastinal silhouette findings. Brain MRI 1. No acute intracranial abnormality. Objective Objective Last 24 Hour Vital Signs Date Time Temp Pulse Resp B/P (MAP) Pulse Ox O2 Delivery O2 Flow Rate FiO2 09/15/19 13:25 162/76 09/15/19 12:00 97.5 65 18 162/76 (104) 97 09/15/19 11:38 67 09/15/19 09:00 Room Air 09/15/19 08:54 147/71 09/15/19 08:54 71 147/71 09/15/19 08:00 98.1 71 18 147/71 (96) 95 09/15/19 07:59 69 09/15/19 04:05 71 09/15/19 04:00 98.0 72 16 119/70 (86) 98 09/15/19 00:00 97.6 70 16 116/76 (89) 97 09/14/19 23:56 74 09/14/19 21:00 Room Air 09/14/19 20:13 70 09/14/19 20:00 97.3 74 16 121/72 (88) 97 09/14/19 17:42 70 132/67 09/14/19 17:42 132/67 09/14/19 16:00 97.4 67 18 132/67 (88) 98 09/14/19 16:00 70 Intake and Output 09/14/19 09/15/19 19:00 07:00 Intake Total 450 ml 120 ml Output Total 3000 ml Balance 450 ml -2880 ml Intake Oral 450 ml 120 ml Output Hemodialysis UF 3000 ml Laboratory Tests 09/14/19 15:45: Troponin I 0.048 09/14/19 17:30: Hepatitis B Surface Antigen [Pending] 09/15/19 05:35: White Blood Count 5.1, Red Blood Count 3.80L, Hemoglobin 11.6L, Hematocrit 35.1L , Mean Corpuscular Volume 93, Mean Corpuscular Hemoglobin 30.6, Mean Corpuscular Hemoglobin Concent 33.1, Red Cell Distribution Width 14.1, Platelet Count 91L, Mean Platelet Volume 10.3H, Neutrophils (%) (Auto) , Lymphocytes (%) (Auto) , Monocytes (%) (Auto) , Eosinophils (%) (Auto) , Basophils (%) (Auto) , Differential Total Cells Counted 100, Neutrophils % (Manual) 51, Lymphocytes % ( Manual) 31, Monocytes % (Manual) 4, Eosinophils % (Manual) 14H, Basophils % ( Manual) 0, Band Neutrophils 0, Platelet Estimate DecreasedL, Platelet Morphology Normal, Red Blood Cell Morphology Normal, Sodium Level 140, Potassium Level 4.4, Chloride Level 101, Carbon Dioxide Level 30, Anion Gap 9, Blood Urea Nitrogen 41H, Creatinine 6.9H, Estimat Glomerular Filtration Rate 7.9 , Glucose Level 108H, Hemoglobin A1c 5.2, Uric Acid 3.2, Calcium Level 9.0, Phosphorus Level 4.0, Total Bilirubin 0.4, Gamma Glutamyl Transpeptidase 83, Aspartate Amino Transf (AST/SGOT) 19, Alanine Aminotransferase (ALT/SGPT) 22, Alkaline Phosphatase 99, C-Reactive Protein, Quantitative < 0.4, Pro-B-Type Natriuretic Peptide 63944X, Total Protein 7.2, Albumin 3.4, Globulin 3.8, Albumin/Globulin Ratio 0.9L Height (Feet): 5 Height (Inches): 7.00 Weight (Pounds): 189 Paul Kilgore MD Sep 15, 2019 15:38
[2019-09-15 16:00] VITALS: BP 169/78
--- NOTE | 2019-09-15 16:40 | NUR ---
NURSE NOTES: Pt refused the one dose amlodipine, risk and benefits explained.
--- NOTE | 2019-09-15 19:35 | NUR ---
NURSE NOTES: Received report from ALEXUS Ferro. Patient is in bed, awake, alert, and responsive. Breathing regular and unlabored with no SOB noted at this time. IC access patent, intact, and saline locked. Presence of thrill and bruit noted over fistula site. Patient currently denies any pain or discomfort. Bed remains in the lowest position, breaks engaged, and call light within reach at all times. All other needs attended to, patient remains stable, will continue to monitor.
--- NOTE | 2019-09-15 19:47 | NUR ---
HAND-OFF: Report given to ALEXUS Arvizu. Pt in stable condition, endorsed plan of care
[2019-09-15 20:00] VITALS: BP 147/59
--- NOTE | 2019-09-15 20:50 | General Progress Note ---
Assessment/Plan Assessment/Plan: PHYSICAL EXAMINATION: HEAD AND NECK: Atraumatic and normocephalic. CHEST: Clear to auscultation.HEART: S1, S2. Regular rate and rhythm. ABDOMEN: Soft. No organomegaly.MUSCULOSKELETAL: Positive for the AV graft/ shunt on the left upper extremity.NEUROLOGIC: Awake, alert, and oriented x3. No gross sensory or motor deficit in the affected limb is appreciated. LABORATORY DATA: Labs dated September 14 reviewed IMAGING: CT scan of head dated September 12, reviewed and is unremarkable. Chest x-ray dated September 12, shows massive cardiac silhouette, possibility of effusion cannot be excluded. ASSESSMENT: 1. Acute sensory deficit in the right upper extremity with differential diagnosis of the TIA/CVA. 2. End-stage renal disease, on hemodialysis. 3. Abnormal blood glucose. 4. Abnormal BNP. 5. Thrombocytopenia. 6. Hypertension. 7. GI and DVT prophylaxis. PLAN OF CARE: notes from Cardiology and Nephrology reviewed Subjective Allergies: Coded Allergies: No Known Allergies (Verified Allergy, Mild, 09/21/10) Objective Last 24 Hour Vital Signs Date Time Temp Pulse Resp B/P (MAP) Pulse Ox O2 Delivery O2 Flow Rate FiO2 09/15/19 20:00 97.9 73 19 147/59 (88) 97 09/15/19 17:44 72 169/78 09/15/19 16:10 71 09/15/19 16:00 98.1 72 18 169/78 (108) 100 09/15/19 13:25 162/76 09/15/19 12:00 97.5 65 18 162/76 (104) 97 09/15/19 11:38 67 09/15/19 09:00 Room Air 09/15/19 08:54 147/71 09/15/19 08:54 71 147/71 09/15/19 08:00 98.1 71 18 147/71 (96) 95 09/15/19 07:59 69 09/15/19 04:05 71 09/15/19 04:00 98.0 72 16 119/70 (86) 98 09/15/19 00:00 97.6 70 16 116/76 (89) 97 09/14/19 23:56 74 09/14/19 21:00 Room Air Intake and Output 09/14/19 09/15/19 19:00 07:00 Intake Total 450 ml 120 ml Output Total 3000 ml Balance 450 ml -2880 ml Intake Oral 450 ml 120 ml Output Hemodialysis UF 3000 ml Laboratory Tests 09/15/19 05:35: White Blood Count 5.1, Red Blood Count 3.80L, Hemoglobin 11.6L, Hematocrit 35.1L , Mean Corpuscular Volume 93, Mean Corpuscular Hemoglobin 30.6, Mean Corpuscular Hemoglobin Concent 33.1, Red Cell Distribution Width 14.1, Platelet Count 91L, Mean Platelet Volume 10.3H, Neutrophils (%) (Auto) , Lymphocytes (%) (Auto) , Monocytes (%) (Auto) , Eosinophils (%) (Auto) , Basophils (%) (Auto) , Differential Total Cells Counted 100, Neutrophils % (Manual) 51, Lymphocytes % ( Manual) 31, Monocytes % (Manual) 4, Eosinophils % (Manual) 14H, Basophils % ( Manual) 0, Band Neutrophils 0, Platelet Estimate DecreasedL, Platelet Morphology Normal, Red Blood Cell Morphology Normal, Sodium Level 140, Potassium Level 4.4, Chloride Level 101, Carbon Dioxide Level 30, Anion Gap 9, Blood Urea Nitrogen 41H, Creatinine 6.9H, Estimat Glomerular Filtration Rate 7.9 , Glucose Level 108H, Hemoglobin A1c 5.2, Uric Acid 3.2, Calcium Level 9.0, Phosphorus Level 4.0, Total Bilirubin 0.4, Gamma Glutamyl Transpeptidase 83, Aspartate Amino Transf (AST/SGOT) 19, Alanine Aminotransferase (ALT/SGPT) 22, Alkaline Phosphatase 99, C-Reactive Protein, Quantitative < 0.4, Pro-B-Type Natriuretic Peptide [id number], Total Protein 7.2, Albumin 3.4, Globulin 3.8, Albumin/Globulin Ratio 0.9L Height (Feet): 5 Height (Inches): 7.00 Weight (Pounds): 189 Juan Moreno MD Sep 15, 2019 20:50
[2019-09-15] MEDS: HydrALAZINE 50mg tab ORAL SCH (21:23)
--- NOTE | 2019-09-15 22:54 | NUR ---
NURSE NOTES: Sent MRSA screen to lab per orders that was not done yet. Patient refused VRE/CRE screen.
[2019-09-16] VITALS: BP 153/80
[2019-09-16 04:00] VITALS: BP 159/81
[2019-09-16] MEDS: HydrALAZINE 50mg tab ORAL SCH ×3 (06:12→21:32)
--- NOTE | 2019-09-16 07:30 | NUR ---
NURSE NOTES: Receive pt from NITA VAUGHAN. Pt is awake and alert, pt is on RA, no SOB or acute respiratory distress noted. pt is on continues heart monitoring. pt has in tact iv access RAC 20G SL. all needs attended, bed is locked and is in the lowest position, call light within easy reach. will continue to monitor.
--- NOTE | 2019-09-16 07:36 | NUR ---
HAND-OFF: Report given to ALEXUS Paez. Plan of care endorsed, patient remains in stable condition.
[2019-09-16 08:00] VITALS: BP 149/59
--- NOTE | 2019-09-16 08:00 | NUR ---
NURSE NOTES: Report given to DIEGO VAUGHAN. Pt is awake and stable.
--- NOTE | 2019-09-16 08:30 | NUR ---
NURSE NOTES: recvd pt. Pt is AOX4 and laying in bed comfortable. Pt is on room air with no sob or resp distress. bed in lowest position, call light within reach,will continue with plan of care
[2019-09-16] MEDS: Minoxidil 10mg tab ORAL SCH ×2 (09:00→09:22)
[2019-09-16] MEDS: Docusate 100mg cap ORAL SCH ×3 (09:00→18:52)
[2019-09-16] MEDS: Aspirin EC 81mg tab ORAL SCH (09:00)
[2019-09-16] MEDS: Heparin 5000 units/ml inj SUBQ SCH ×2 (09:00→21:00)
[2019-09-16] MEDS: Thiamine 100mg tab ORAL SCH (09:22)
[2019-09-16] MEDS: Carvedilol 25mg Tab ORAL SCH ×2 (09:22→18:00)
--- NOTE | 2019-09-16 10:14 | General Progress Note ---
Assessment/Plan Assessment/Plan: S: I am feeling ok O: seems comfortable, denies chest pain or sob PHYSICAL EXAMINATION: HEAD AND NECK: Atraumatic and normocephalic. CHEST: Clear to auscultation.HEART: S1, S2. Regular rate and rhythm. ABDOMEN: Soft. No organomegaly.MUSCULOSKELETAL: Positive for the AV graft/ shunt on the left upper extremity.NEUROLOGIC: Awake, alert, and oriented x3. No gross sensory or motor deficit in the affected limb is appreciated. LABORATORY DATA: Labs dated September 15 reviewed IMAGING: CT scan of head dated September 12, reviewed and is unremarkable. Chest x-ray dated September 12, shows massive cardiac silhouette, possibility of effusion cannot be excluded. ASSESSMENT: 1. Acute sensory deficit in the right upper extremity with differential diagnosis of the TIA/CVA. 2. End-stage renal disease, on hemodialysis. 3. Abnormal blood glucose. 4. Abnormal BNP. 5. Thrombocytopenia. 6. Hypertension. 7. GI and DVT prophylaxis. PLAN OF CARE: notes from Cardiology and Nephrology reviewed decreasing level of plt, will discuss the risk/benefits for continuation of ASA Subjective Allergies: Coded Allergies: No Known Allergies (Verified Allergy, Mild, 09/21/10) Objective Last 24 Hour Vital Signs Date Time Temp Pulse Resp B/P (MAP) Pulse Ox O2 Delivery O2 Flow Rate FiO2 09/16/19 09:22 149/59 09/16/19 09:22 73 149/59 09/16/19 09:00 73 149/59 09/16/19 08:54 Room Air 09/16/19 08:00 97.5 73 20 149/59 (89) 98 09/16/19 06:12 159/81 09/16/19 04:00 97.8 73 18 159/81 (107) 97 09/16/19 04:00 68 09/16/19 00:00 97.9 71 18 153/80 (104) 97 09/16/19 00:00 70 09/15/19 21:23 147/59 09/15/19 21:00 Room Air 09/15/19 20:00 77 09/15/19 20:00 97.9 73 19 147/59 (88) 97 09/15/19 17:44 72 169/78 09/15/19 16:10 71 09/15/19 16:00 98.1 72 18 169/78 (108) 100 09/15/19 13:25 162/76 09/15/19 12:00 97.5 65 18 162/76 (104) 97 09/15/19 11:38 67 Intake and Output 09/15/19 09/16/19 19:00 07:00 Intake Total 4200 ml 360 ml Balance 4200 ml 360 ml Intake Oral 1200 ml 360 ml Hemodialysis 3000 ml # Voids 5 1 Height (Feet): 5 Height (Inches): 7.00 Weight (Pounds): 191 Juan Moreno MD Sep 16, 2019 10:14
[2019-09-16 12:00] VITALS: BP 123/63
--- NOTE | 2019-09-16 12:17 | Cardiac Electrophysiology PN ---
Assessment/Plan Assessment/Plan 1. Right arm pain. The patient's EKG showed sinus rhythm with complete right bundle-branch block and left posterior fascicular block. She already ruled out for myocardial infarction. Her echocardiogram showed hyperdynamic left ventricle. 2. Hypertension and left ventricular hypertrophy. Continue Coreg 25 mg b.i.d., minoxidil 10 daily , hydralazine 50 tid and hemodialysis. 3. End-stage renal disease, on hemodialysis. 4. Bifascicular block with right bundle-branch block and left anterior fascicular block. Subjective Subjective Feeling better. No CP or SOB. Objective Last 24 Hour Vital Signs Date Time Temp Pulse Resp B/P (MAP) Pulse Ox O2 Delivery O2 Flow Rate FiO2 09/16/19 12:00 97.9 72 20 123/63 (83) 95 09/16/19 09:22 149/59 09/16/19 09:22 73 149/59 09/16/19 09:00 73 149/59 09/16/19 08:54 Room Air 09/16/19 08:00 97.5 73 20 149/59 (89) 98 09/16/19 08:00 79 09/16/19 06:12 159/81 09/16/19 04:00 97.8 73 18 159/81 (107) 97 09/16/19 04:00 68 09/16/19 00:00 97.9 71 18 153/80 (104) 97 09/16/19 00:00 70 09/15/19 21:23 147/59 09/15/19 21:00 Room Air 09/15/19 20:00 77 09/15/19 20:00 97.9 73 19 147/59 (88) 97 09/15/19 17:44 72 169/78 09/15/19 16:10 71 09/15/19 16:00 98.1 72 18 169/78 (108) 100 09/15/19 13:25 162/76 Intake and Output 09/15/19 09/16/19 19:00 07:00 Intake Total 4200 ml 360 ml Balance 4200 ml 360 ml Intake Oral 1200 ml 360 ml Hemodialysis 3000 ml # Voids 5 1 Objective HEAD AND NECK: Shows no jugular venous distention. LUNGS: Clear. CARDIOVASCULAR: Shows regular S1 and S2 with no gallop or murmur. ABDOMEN: Soft. EXTREMITIES: No pitting edema. Left arm has an AV shunt. Milton Rosen MD Sep 16, 2019 12:17
--- NOTE | 2019-09-16 13:13 | NUR ---
CASE MANAGEMENT:REVIEW 44 YR PLD FEMALE WALKED IN TO ER CC: RT ARM AND HAND NUMBNESS PMH: ESRD ON HD TTS SI: POSSIBLE CVA 98.3 78 15 174/77 97% ON RA BUN+41 CR+7.3 IS: ASA PO HYDRALAZINE PO COREG PO MINOXIDIL PO CT HEAD CHEST XRAY : TO TELEMETRY DCP: FROM HOME 09/16/19 SI: TIA/CVA 97.9 72 20 123/63 95% ON RA NO LABS TODAY IS: NORVASC PO QD HYDRALAZINE PO Q8 MINOXIDIL PO QD HEPARIN SQ Q12 COREG PO BID ASA PO QD : TELEMETRY STATUS DCP: FROM HOME
--- NOTE | 2019-09-16 13:40 | Diagnostic Imaging Report ---
Indication: Neck Pain Findings: 3 views of the cervical spine were obtained. There is no acute fracture identified. Alignment is normal. The open-mouth odontoid view shows an intact dens and good alignment of the lateral masses with respect to the body of C2. There is no soft tissue swelling. Impression: Negative cervical spine examination.
--- NOTE | 2019-09-16 13:59 | NUR ---
RD ASSESSMENT & RECOMMENDATIONS SEE CARE ACTIVITY FOR COMPLETE ASSESSMENT DAILY ESTIMATED NEEDS: Needs based on ESRD on HD/ 67.7kg abw 25-30 kcals/kg 2506-8332 total kcals 1.2-1.8 g protein/kg 81-121 g total protein 20-22 mL/kg 2624-7079 total fluid mLs NUTRITION DIAGNOSIS: Altered nutrition related lab values R/T ESRD as evidenced by elev creat (6.9), elev BNP (37271). CURRENT DIET:RENAL PO DIET RECOMMENDATIONS: RENAL, texture as tolerated ADDITIONAL RECOMMENDATIONS: * Daily standing wt * Monitor lytes and renal fxn: lytes wnl at this time * Nephrovite x 1 * Consider [employer] CLERK eval for appropriate texture: h/o CVA * Monitor BGs, need for carb controlled diet/ NISS - h/o DM
[2019-09-16 16:00] VITALS: BP 131/65
--- NOTE | 2019-09-16 17:59 | Nephrology Progress Note ---
Assessment/Plan Problem List: (1) End stage renal disease on dialysis (2) Cardiomegaly (3) Numbness of right hand Assessment End-stage renal disease on dialysis Numbness of the right hand unclear whether its vascular or neurological Hypertension and cardiomegaly Plan dialysis done September 13 next dialysis September 16 Keep the blood pressure in check and adjusted blood pressure medication 2D echocardiogram indicative of ejection fraction of 60% Continue per consultants CXR: 1. Massive cardiac mediastinal silhouette enlargement, which could represent pericardial effusion, chamber enlargement, or a combination of these processes. 2. Otherwise no acute cardiopulmonary disease. 3. Recommend echocardiogram to further characterize cardiomediastinal silhouette findings. Brain MRI 1. No acute intracranial abnormality. Subjective ROS Limited/Unobtainable: No Constitutional: Reports: malaise Objective Objective Last 24 Hour Vital Signs Date Time Temp Pulse Resp B/P (MAP) Pulse Ox O2 Delivery O2 Flow Rate FiO2 09/16/19 16:00 73 09/16/19 16:00 97.8 76 20 131/65 (87) 98 09/16/19 14:32 123/63 09/16/19 12:00 97.9 72 20 123/63 (83) 95 09/16/19 12:00 70 09/16/19 09:22 149/59 09/16/19 09:22 73 149/59 09/16/19 09:00 73 149/59 09/16/19 08:54 Room Air 09/16/19 08:00 97.5 73 20 149/59 (89) 98 09/16/19 08:00 79 09/16/19 06:12 159/81 09/16/19 04:00 97.8 73 18 159/81 (107) 97 09/16/19 04:00 68 09/16/19 00:00 97.9 71 18 153/80 (104) 97 09/16/19 00:00 70 09/15/19 21:23 147/59 09/15/19 21:00 Room Air 09/15/19 20:00 77 09/15/19 20:00 97.9 73 19 147/59 (88) 97 Intake and Output 09/15/19 09/16/19 19:00 07:00 Intake Total 4200 ml 360 ml Balance 4200 ml 360 ml Intake Oral 1200 ml 360 ml Hemodialysis 3000 ml # Voids 5 1 Current Medications Medications (Trade) Dose Ordered Sig/Atif Route PRN Reason Start Time Stop Time Status Last Admin Dose Admin Acetaminophen (Tylenol) 500 mg Q8HR PRN ORAL Mild Pain/Temp > 100.5 09/13/19 22:15 10/13/19 22:14 09/14/19 23:39 Amlodipine Besylate (Norvasc) 5 mg DAILY ORAL 09/16/19 09:00 10/16/19 08:59 Aspirin (Ecotrin) 81 mg DAILY ORAL 09/14/19 09:00 10/14/19 08:59 09/14/19 08:22 Carvedilol (Coreg) 25 mg BID ORAL 09/14/19 18:00 10/14/19 08:59 09/16/19 09:22 Docusate Sodium (Colace) 100 mg THREE TIMES A DAY ORAL 09/14/19 18:00 10/14/19 17:59 Heparin Sodium (Porcine) (Heparin 5000 units/ml) 5,000 units EVERY 12 HOURS SUBQ 09/14/19 21:00 10/14/19 20:59 Hydralazine HCl (Apresoline) 50 mg Q8HR ORAL 09/15/19 22:00 10/15/19 21:59 09/16/19 14:32 Minoxidil (Loniten) 10 mg DAILY ORAL 09/15/19 09:00 10/14/19 08:59 09/16/19 09:22 Pantoprazole (Protonix) 40 mg DAILY@0630 ORAL 09/14/19 06:30 10/14/19 06:29 Sevelamer Carbonate (Renvela) 800 mg THREE TIMES A DAY PRN ORAL Kidney 09/13/19 22:15 10/13/19 22:14 Thiamine HCl (Vitamin B1) 100 mg DAILY ORAL 09/14/19 09:00 10/14/19 08:59 09/16/19 09:22 Height (Feet): 5 Height (Inches): 7.00 Weight (Pounds): 191 General Appearance: no apparent distress Objective No change Paul Kilgore MD Sep 16, 2019 17:59
--- NOTE | 2019-09-16 19:30 | NUR ---
NURSE NOTES: Got report from Rachelle VAUGHAN. Pt in stable condition. Denies any pain. No s/s of distress or discomfort noted. Pt resting in bed comfortably. Bed in low and locked position, call light within reach, bedside table within reach. Continue to monitor.
[2019-09-16 20:00] VITALS: BP 150/60
[2019-09-17] VITALS: BP 142/64
[2019-09-17] MEDS: HydrALAZINE 50mg tab ORAL SCH ×3 (06:05→21:57)
--- NOTE | 2019-09-17 07:05 | NUR ---
HAND-OFF: Report given to Symone VAUGHAN.
[2019-09-17 07:26] LABS: BASOPHILS % (AUTO) 2.4 % (0.0-2.0); EOSINOPHILS % (AUTO) 15.5 % (0.0-3.0); HEMATOCRIT 34.6 % (37.0-47.0); HEMOGLOBIN 11.4 G/DL (12.0-16.0); LYMPHOCYTES % (AUTO) 23.8 % (20.0-45.0); MEAN CORPUSCULAR VOLUME 93 FL (80-99); MONOCYTES % (AUTO) 8.2 % (1.0-10.0); NEUTROPHILS % (AUTO) 50.1 % (45.0-75.0); PLATELET COUNT 106 K/UL (150-450); RED BLOOD COUNT 3.74 M/UL (4.20-5.40); RED CELL DISTRIBUTION WIDTH 13.9 % (11.6-14.8)
[2019-09-17 08:00] VITALS: BP 133/62
[2019-09-17 08:04] LABS: ALANINE AMINOTRANSFERASE 25 U/L (12-78); ALBUMIN 3.4 G/DL (3.4-5.0); ALBUMIN/GLOBULIN RATIO 0.9 (1.0-2.7); ALKALINE PHOSPHATASE 101 U/L (46-116); ANION GAP 14 mmol/L (5-15); ASPARTATE AMINO TRANSFERASE 16 U/L (15-37); BILIRUBIN,TOTAL 0.4 MG/DL (0.2-1.0); BLOOD UREA NITROGEN 66 mg/dL (7-18); CALCIUM 9.1 MG/DL (8.5-10.1); CARBON DIOXIDE 23 MMOL/L (21-32); CHLORIDE 102 MMOL/L (98-107); CREATININE 10.7 MG/DL (0.55-1.30); PHOSPHORUS 5.3 MG/DL (2.5-4.9); POTASSIUM 5.2 MMOL/L (3.5-5.1); SODIUM 139 MMOL/L (136-145)
--- NOTE | 2019-09-17 08:20 | NUR ---
NURSE NOTES: Received patient from Bay Carvalho. Patient is awake in bed. NO complain of pain or discomfort. Fall precautions in place. will follow.
--- NOTE | 2019-09-17 08:22 | NUR ---
NURSE NOTES: Received call from HD nurse [place] will be in this afternoon to do HD for patient. Will follow.
[2019-09-17] MEDS: Aspirin EC 81mg tab ORAL SCH (09:00)
[2019-09-17] MEDS: Carvedilol 25mg Tab ORAL SCH ×2 (09:00→17:41)
[2019-09-17] MEDS: Docusate 100mg cap ORAL SCH ×4 (09:00→17:41)
[2019-09-17] MEDS: Heparin 5000 units/ml inj SUBQ SCH ×2 (09:00→21:00)
[2019-09-17] MEDS: Minoxidil 10mg tab ORAL SCH (09:00)
[2019-09-17] MEDS: Thiamine 100mg tab ORAL SCH (09:31)
--- NOTE | 2019-09-17 11:09 | Cardiac Electrophysiology PN ---
Assessment/Plan Assessment/Plan 1. Right arm pain. The patient's EKG showed sinus rhythm with complete right bundle-branch block and left posterior fascicular block. She already ruled out for myocardial infarction. Her echocardiogram showed hyperdynamic left ventricle. MRI Brain was done today. FU by neurologist 2. Hypertension and left ventricular hypertrophy. Continue Coreg 25 mg b.i.d., minoxidil 10 daily , hydralazine 50 tid and hemodialysis. 3. End-stage renal disease, on hemodialysis. 4. Bifascicular block with right bundle-branch block and left anterior fascicular block. Subjective Subjective Feeling better. No CP or SOB. Just had MRI Objective Last 24 Hour Vital Signs Date Time Temp Pulse Resp B/P (MAP) Pulse Ox O2 Delivery O2 Flow Rate FiO2 09/17/19 09:00 Room Air 09/17/19 08:00 97.3 69 18 133/62 (85) 95 09/17/19 08:00 70 09/17/19 06:05 121/60 09/17/19 04:00 71 09/17/19 00:00 74 09/17/19 00:00 97.9 75 18 142/64 (90) 97 09/16/19 21:32 150/60 09/16/19 21:00 Room Air 09/16/19 20:00 73 09/16/19 20:00 97.7 75 18 150/60 (90) 96 09/16/19 18:00 73 131/65 09/16/19 16:00 73 09/16/19 16:00 97.8 76 20 131/65 (87) 98 09/16/19 14:32 123/63 09/16/19 12:00 97.9 72 20 123/63 (83) 95 09/16/19 12:00 70 Intake and Output 09/16/19 09/17/19 19:00 07:00 Intake Total 400 ml Balance 400 ml Intake Oral 400 ml # Bowel Movements 1 Laboratory Tests Test 09/17/19 06:39 White Blood Count 5.0 K/UL (4.8-10.8) Red Blood Count 3.74 M/UL (4.20-5.40) L Hemoglobin 11.4 G/DL (12.0-16.0) L Hematocrit 34.6 % (37.0-47.0) L Mean Corpuscular Volume 93 FL (80-99) Mean Corpuscular Hemoglobin 30.6 PG (27.0-31.0) Mean Corpuscular Hemoglobin Concent 33.1 G/DL (32.0-36.0) Red Cell Distribution Width 13.9 % (11.6-14.8) Platelet Count 106 K/UL (150-450) L Mean Platelet Volume 9.0 FL (6.5-10.1) Neutrophils (%) (Auto) 50.1 % (45.0-75.0) Lymphocytes (%) (Auto) 23.8 % (20.0-45.0) Monocytes (%) (Auto) 8.2 % (1.0-10.0) Eosinophils (%) (Auto) 15.5 % (0.0-3.0) H Basophils (%) (Auto) 2.4 % (0.0-2.0) H Sodium Level 139 MMOL/L (136-145) Potassium Level 5.2 MMOL/L (3.5-5.1) H Chloride Level 102 MMOL/L (98-107) Carbon Dioxide Level 23 MMOL/L (21-32) Anion Gap 14 mmol/L (5-15) Blood Urea Nitrogen 66 mg/dL (7-18) H Creatinine 10.7 MG/DL (0.55-1.30) H Estimat Glomerular Filtration Rate 4.7 mL/min (>60) Glucose Level 90 MG/DL (74-106) Calcium Level 9.1 MG/DL (8.5-10.1) Phosphorus Level 5.3 MG/DL (2.5-4.9) H Magnesium Level 1.9 MG/DL (1.8-2.4) Total Bilirubin 0.4 MG/DL (0.2-1.0) Aspartate Amino Transf (AST/SGOT) 16 U/L (15-37) Alanine Aminotransferase (ALT/SGPT) 25 U/L (12-78) Alkaline Phosphatase 101 U/L (46-116) C-Reactive Protein, Quantitative < 0.4 mg/dL (0.00-0.90) Pro-B-Type Natriuretic Peptide 98695 pg/mL (0-125) H Total Protein 7.2 G/DL (6.4-8.2) Albumin 3.4 G/DL (3.4-5.0) Globulin 3.8 g/dL Albumin/Globulin Ratio 0.9 (1.0-2.7) L Objective HEAD AND NECK: Shows no jugular venous distention. LUNGS: Clear. CARDIOVASCULAR: Shows regular S1 and S2 with no gallop or murmur. ABDOMEN: Soft. EXTREMITIES: No pitting edema. Left arm has an AV shunt. Milton Rosen MD Sep 17, 2019 11:09
[2019-09-17 12:00] VITALS: BP 150/62
--- NOTE | 2019-09-17 12:13 | Nephrology Progress Note ---
Assessment/Plan Problem List: (1) End stage renal disease on dialysis (2) Cardiomegaly (3) Numbness of right hand Assessment End-stage renal disease on dialysis Numbness of the right hand unclear whether its vascular or neurological Hypertension and cardiomegaly Plan Patient anxious to be discharged dialysis done September 13 next dialysis September 16 Keep the blood pressure in check and adjusted blood pressure medication 2D echocardiogram indicative of ejection fraction of 60% Continue per consultants CXR: 1. Massive cardiac mediastinal silhouette enlargement, which could represent pericardial effusion, chamber enlargement, or a combination of these processes. 2. Otherwise no acute cardiopulmonary disease. 3. Recommend echocardiogram to further characterize cardiomediastinal silhouette findings. Brain MRI 1. No acute intracranial abnormality. Subjective ROS Limited/Unobtainable: No Objective Objective Last 24 Hour Vital Signs Date Time Temp Pulse Resp B/P (MAP) Pulse Ox O2 Delivery O2 Flow Rate FiO2 09/17/19 09:00 Room Air 09/17/19 08:00 97.3 69 18 133/62 (85) 95 09/17/19 08:00 70 09/17/19 06:05 121/60 09/17/19 04:00 71 09/17/19 00:00 74 09/17/19 00:00 97.9 75 18 142/64 (90) 97 09/16/19 21:32 150/60 09/16/19 21:00 Room Air 09/16/19 20:00 73 09/16/19 20:00 97.7 75 18 150/60 (90) 96 09/16/19 18:00 73 131/65 09/16/19 16:00 73 09/16/19 16:00 97.8 76 20 131/65 (87) 98 09/16/19 14:32 123/63 Intake and Output 09/16/19 09/17/19 19:00 07:00 Intake Total 400 ml Balance 400 ml Intake Oral 400 ml # Bowel Movements 1 Current Medications Medications (Trade) Dose Ordered Sig/Atif Route PRN Reason Start Time Stop Time Status Last Admin Dose Admin Acetaminophen (Tylenol) 500 mg Q8HR PRN ORAL Mild Pain/Temp > 100.5 09/13/19 22:15 10/13/19 22:14 09/14/19 23:39 Amlodipine Besylate (Norvasc) 5 mg DAILY ORAL 09/16/19 09:00 10/16/19 08:59 Aspirin (Ecotrin) 81 mg DAILY ORAL 09/14/19 09:00 10/14/19 08:59 09/14/19 08:22 Carvedilol (Coreg) 25 mg BID ORAL 09/14/19 18:00 10/14/19 08:59 09/16/19 18:00 Docusate Sodium (Colace) 100 mg THREE TIMES A DAY ORAL 09/14/19 18:00 10/14/19 17:59 09/16/19 18:52 Heparin Sodium (Porcine) (Heparin 5000 units/ml) 5,000 units EVERY 12 HOURS SUBQ 09/14/19 21:00 10/14/19 20:59 Hydralazine HCl (Apresoline) 50 mg Q8HR ORAL 09/15/19 22:00 10/15/19 21:59 09/17/19 06:05 Minoxidil (Loniten) 10 mg DAILY ORAL 09/15/19 09:00 10/14/19 08:59 09/16/19 09:22 Pantoprazole (Protonix) 40 mg DAILY@0630 ORAL 09/14/19 06:30 10/14/19 06:29 Sevelamer Carbonate (Renvela) 800 mg THREE TIMES A DAY PRN ORAL Kidney 09/13/19 22:15 10/13/19 22:14 Thiamine HCl (Vitamin B1) 100 mg DAILY ORAL 09/14/19 09:00 10/14/19 08:59 09/17/19 09:31 Laboratory Tests 09/17/19 06:39: White Blood Count 5.0, Red Blood Count 3.74L, Hemoglobin 11.4L, Hematocrit 34.6L , Mean Corpuscular Volume 93, Mean Corpuscular Hemoglobin 30.6, Mean Corpuscular Hemoglobin Concent 33.1, Red Cell Distribution Width 13.9, Platelet Count 106L, Mean Platelet Volume 9.0, Neutrophils (%) (Auto) 50.1, Lymphocytes ( %) (Auto) 23.8, Monocytes (%) (Auto) 8.2, Eosinophils (%) (Auto) 15.5H, Basophils (%) (Auto) 2.4H, Sodium Level 139, Potassium Level 5.2H, Chloride Level 102, Carbon Dioxide Level 23, Anion Gap 14, Blood Urea Nitrogen 66H, Creatinine 10.7H, Estimat Glomerular Filtration Rate 4.7, Glucose Level 90, Calcium Level 9.1, Phosphorus Level 5.3H, Magnesium Level 1.9, Total Bilirubin 0.4, Aspartate Amino Transf (AST/SGOT) 16, Alanine Aminotransferase (ALT/SGPT) 25, Alkaline Phosphatase 101, C-Reactive Protein, Quantitative < 0.4, Pro-B- Type Natriuretic Peptide 02253G, Total Protein 7.2, Albumin 3.4, Globulin 3.8, Albumin/Globulin Ratio 0.9L Height (Feet): 5 Height (Inches): 7.00 Weight (Pounds): 190 General Appearance: no apparent distress Objective No change Paul Kilgore MD Sep 17, 2019 12:13
--- NOTE | 2019-09-17 13:39 | Diagnostic Imaging Report ---
Indication: Acute sensory deficit in the right upper extremity Technique: sagittal T1 fast spin echo, axial T1 FLAIR, axial T2 FLAIR, axial T2 FS PROPELLER, axial T2* GRE, axial diffusion weighted images. ADC and exponential ADC maps generated Comparison: No comparison MRI. Reference made to brain CT 09/13/2019 Findings: No abnormal areas of restricted diffusion to suggest acute infarction. No acute hemorrhage or edema. No mass effect nor midline shift. Normal size ventricles and extra axial CSF spaces. Visualized orbits and sinuses are unremarkable. The vascular flow voids are preserved. Impression: Negative
--- NOTE | 2019-09-17 14:41 | General Progress Note ---
Assessment/Plan Assessment/Plan: S: I am feeling ok O: seems comfortable, denies chest pain or sob PHYSICAL EXAMINATION: HEAD AND NECK: Atraumatic and normocephalic. CHEST: Clear to auscultation.HEART: S1, S2. Regular rate and rhythm. ABDOMEN: Soft. No organomegaly.MUSCULOSKELETAL: Positive for the AV graft/ shunt on the left upper extremity.NEUROLOGIC: Awake, alert, and oriented x3. No gross sensory or motor deficit in the affected limb is appreciated. LABORATORY DATA: Labs dated September 16 reviewed IMAGING: CT scan of head dated September 12, reviewed and is unremarkable. Chest x-ray dated September 12, shows massive cardiac silhouette, possibility of effusion cannot be excluded. ASSESSMENT: 1. Acute sensory deficit in the right upper extremity with differential diagnosis of the TIA/CVA. 2. End-stage renal disease, on hemodialysis. 3. Abnormal blood glucose. 4. Abnormal BNP. 5. Thrombocytopenia. 6. Hypertension. 7. GI and DVT prophylaxis. PLAN OF CARE: notes from Cardiology and Nephrology reviewed decreasing level of plt but stable. FU as O/p Subjective Allergies: Coded Allergies: No Known Allergies (Verified Allergy, Mild, 09/21/10) Objective Last 24 Hour Vital Signs Date Time Temp Pulse Resp B/P (MAP) Pulse Ox O2 Delivery O2 Flow Rate FiO2 09/17/19 12:00 70 09/17/19 12:00 97.2 72 18 150/62 (91) 100 09/17/19 09:00 Room Air 09/17/19 08:00 97.3 69 18 133/62 (85) 95 09/17/19 08:00 70 09/17/19 06:05 121/60 09/17/19 04:00 71 09/17/19 00:00 74 09/17/19 00:00 97.9 75 18 142/64 (90) 97 09/16/19 21:32 150/60 09/16/19 21:00 Room Air 09/16/19 20:00 73 09/16/19 20:00 97.7 75 18 150/60 (90) 96 09/16/19 18:00 73 131/65 09/16/19 16:00 73 09/16/19 16:00 97.8 76 20 131/65 (87) 98 Intake and Output 09/16/19 09/17/19 19:00 07:00 Intake Total 400 ml Balance 400 ml Intake Oral 400 ml # Bowel Movements 1 Laboratory Tests 09/17/19 06:39: White Blood Count 5.0, Red Blood Count 3.74L, Hemoglobin 11.4L, Hematocrit 34.6L , Mean Corpuscular Volume 93, Mean Corpuscular Hemoglobin 30.6, Mean Corpuscular Hemoglobin Concent 33.1, Red Cell Distribution Width 13.9, Platelet Count 106L, Mean Platelet Volume 9.0, Neutrophils (%) (Auto) 50.1, Lymphocytes ( %) (Auto) 23.8, Monocytes (%) (Auto) 8.2, Eosinophils (%) (Auto) 15.5H, Basophils (%) (Auto) 2.4H, Sodium Level 139, Potassium Level 5.2H, Chloride Level 102, Carbon Dioxide Level 23, Anion Gap 14, Blood Urea Nitrogen 66H, Creatinine 10.7H, Estimat Glomerular Filtration Rate 4.7, Glucose Level 90, Calcium Level 9.1, Phosphorus Level 5.3H, Magnesium Level 1.9, Total Bilirubin 0.4, Aspartate Amino Transf (AST/SGOT) 16, Alanine Aminotransferase (ALT/SGPT) 25, Alkaline Phosphatase 101, C-Reactive Protein, Quantitative < 0.4, Pro-B- Type Natriuretic Peptide 11628Y, Total Protein 7.2, Albumin 3.4, Globulin 3.8, Albumin/Globulin Ratio 0.9L Height (Feet): 5 Height (Inches): 7.00 Weight (Pounds): 190 Jaun Moreno MD Sep 17, 2019 14:41
[2019-09-17 16:00] VITALS: BP 161/73
--- NOTE | 2019-09-17 16:30 | NUR ---
NURSE NOTES: Received discharge patient to home order from Dr. Moreno as long as cleared by Dr. Kilgore. Per Dr. Kilgore patient ok for discharge today after dialysis. Spoke with HD nurse Young aware patient has discharge order after HD today. will follow
[2019-09-17] MEDS: Acetaminophen 500mg (ES) tab ORAL PRN (18:59)
--- NOTE | 2019-09-17 19:18 | NUR ---
HAND-OFF: Report given to [facility] Carvalho. Patient currently receiveing HD. Pending discharge after dialysis today. Plan of care endorsed.
[2019-09-17 20:00] VITALS: BP 160/69
[2019-09-17 23:00] VITALS: BP 150/70
--- NOTE | 2019-09-17 23:20 | NUR ---
NURSE NOTES: Pt discharged. Her mother Nirali Simpson picked her up. VSS. Pt is fully alert and ambulatory. All belongings brought with pt. Pt denies any pain or discomfort. No s/s of distress or discomfort noted. child monitor taken off pt. Iv access removed. Pt in stable condition.
--- NOTE | 2019-09-19 10:16 | Discharge Summary ---
Discharge Summary Discharge Summary _ DATE OF ADMISSION: 09/13/2019 DATE OF DISCHARGE: 09/17/2019 DISCHARGED BY: Dr. Moreno REASON FOR ADMISSION: 44 years old female with past medical history of end-stage renal disease, on hemodialysis, hypertension, diabetes mellitus, presented with four days of intermittent right hand weakness and numbness. Upon evaluation blood pressure was elevated 174/77. Laboratory work-up revealed no leukocytosis ,stable hemoglobin, hematocrit. BUN 41, creatinine 7.3, consistent with known history of end-stage renal disease. Glucose 137. Troponin - 0.049. pro BNP 77857. EKG revealed complete right bundle branch block and left posterior fascicular block . Sinus rhythm ,no PVCs, no ectopy. CT scan of the head revealed no acute intracranial pathology. Chest x-ray revealed massive cardiac mediastinal silhouette enlargement, could represent pericardial effusion, chamber enlargement or a combination of those two. Otherwise no acute cardiopulmonary disease. Patient subsequently admitted to telemetry floor for further management. CONSULTANTS: cytology laboratory manager Dr. Garza commercial finance manager Dr. Kilgore [facility] COURSE: Patient admitted to telemetry floor. Serial troponin were negative. EKG revealed bifascicular block . No complaint of chest pain. Patient was ruled out for acute OK. Echocardiogram demonstrated preserved ejection fraction of 60 to 65% with mild to moderate left ventricular hypertrophy. No evidence of wall motion abnormality. Moderate circumferential pericardial effusion noted. No evidence of early diastolic RV collapse. Moderate tricuspid regurgitation. Right ventricular systolic pressure of 76 ,consistent with severe pulmonary hypertension. Carotid duplex revealed moderate atherosclerotic plaque in the left proximal internal carotid artery, producing 50 to 69% of stenosis. Less than 50% of stenosis in the right proximal internal carotid artery. Lipid panel was stable. Patient was on antiplatelet therapy with aspirin. Low-fat, low-cholesterol, no concentrated sweet diet provided. Blood pressure was managed with multiple antihypertensive medications as per cytology laboratory manager, including beta-stanislav, hydralazine, calcium channel stanislav, minoxidil as well as dialysis. Blood pressure improved. MRI of the brain revealed no acute intracranial pathology. X-ray of the cervical spine was negative. Hemodialysis provided as per commercial finance manager orders with close monitoring of volumes, renal parameters and electrolytes. Blood sugar was closely monitored, remained stable. Hemoglobin A1c 5.3. Supportive care provided. Pain management was addressed as needed. Right hand numbness resolved. Patient clinically stabilized and was ready for discharge FINAL DIAGNOSES: Right hand numbness-resolved End-stage renal disease, on hemodialysis Cardiomegaly Hypertension Left ventricular hypertrophy Bifascicular block with right bundle branch block and left posterior fascicular block Diabetes mellitus DISCHARGE MEDICATIONS: See Medication Reconciliation list. DISCHARGE INSTRUCTIONS: Patient was discharged home. Follow-up with a primary care provider in 1 week. I have been assigned to dictate discharge summary for this account. I was not involved in the patient's management. Helen Pollack NP Sep 19, 2019 10:16
== END 2019-09-17 23:24 | disposition home or self-care (01) | DRG 91 ==
LOC: EMR 17:36 → INTOOBSV 17:55 → OBSVTOIN 17:55 → 2E 17:55 → EDBEDREQ 18:53
PROC: 5A1D70Z Performance of Urinary Filtration, Intermittent, Less than 6 Hours Per Day (ICD-10-PCS; principal; 2019-09-14)
DX: R20.0 Anesthesia of skin (principal); N18.6 End stage renal disease; I13.11 Hypertensive heart and chronic kidney disease without heart failure, with stage 5 chronic kidney disease, or end stage renal disease; I45.2 Bifascicular block; I45.10 Unspecified right bundle-branch block; D69.6 Thrombocytopenia, unspecified
CPT/HCPCS: 36415; 70450; 70551; 71045; 72040; 80053; 80061; 82550; 82977; 83036; 83735; 83880; 84100; 84443; 84484; 84550; 85007; 85025; 85610; 85730; 86140; 86706; 87081; 93005; 93306; 93880; 99285